=== PATIENT | female | born 1980 | race Caucasian/White ===

== ENCOUNTER 2016-04-26 17:44 | Emergency (ER) | payer MEDICAID ==
--- NOTE | 2016-04-30 13:23 | ER ---
ADMIT: 04/26/2016 RM/LOC: ER [facility] MR#: [id number] [address] [id number] ANGELAANNAARON D [address] [place] [id number] Emergency Room Report SEX: F AGE: 36 : 1980 DATE: 04/26/2016 ADDENDUM: This patient comes to the ER because she has had pain in her chest for the last 2 months. It is worse when she touches her chest or when she moves her arm. Also, seems to be in her back. On physical exam, she is extremely tender to palpation on the left chest area. She has good range of motion of her shoulder. Chest x-ray was normal. EKG showed a normal sinus rhythm. DIAGNOSIS: Chest wall pain. DISCUSSION: She was given a shot of Toradol, and I wrote a prescription for Flexeril. If she is not feeling better in the next few days, she should follow up with Dr. Torres. Please see my T-sheet. AGATA Dooley / José Miguel Vincent MD / eladio JOB #: [id number] CC: Gabe Morris MD, Attending Physician Ermelinda Torres MD, Family Physician
== END 2016-04-26 22:42 | disposition home or self-care (01) ==
LOC: ER 17:44
DX: R07.89 Other chest pain (principal); I10 Essential (primary) hypertension